=== PATIENT | female | born 1960 | race Caucasian/White ===

== ENCOUNTER 2022-08-03 08:06 | Day surgery (SDC) | payer MEDICARE ==
[2022-08-03] MEDS ORDERED: Sodium Chloride 0.9(Preservative Free) 10 ML IJ ONE (08:07)
[2022-08-03] MEDS ORDERED: LIDOCAINE HCL 1% 50 MG/5 ML VL PF IJ ONE (08:07)
[2022-08-03] MEDS ORDERED: Decadron 4 MG INJ IV ONE (08:07)
[2022-08-03] MEDS ORDERED: Depo-Medrol 40 MG/ML IM ONE (08:07)
[2022-08-03] MEDS ORDERED: Pepcid 20 MG VIAL IV ONE (08:38)
[2022-08-03] MEDS ORDERED: Reglan 10 MG/2 ML ONE (08:38)
[2022-08-03] MEDS ORDERED: DIPRIVAN 200 MG/20 ML IV ONE (09:05)
[2022-08-03] MEDS ORDERED: Lactated Ringers 1,000 ML IV ONE (11:54)
--- NOTE | 2022-08-03 18:22 | XRAY ---
Indication: Left L4-S1 transforaminal TYLER. Intraoperative fluoroscopy provided for 20 seconds. 3 digital spot image submitted for interpretation demonstrates posterior needle tips projecting over the expected left L4 and L5 nerve roots. Small amount of contrast injected for needle tip placement. Correlate with intraoperative findings/report.
--- NOTE | 2022-08-03 18:24 | XRAY ---
Indication: Left piriformis injection. Intraoperative fluoroscopy provided for 7 seconds. Single digital spot image submitted for interpretation demonstrates posterior needle tip projecting over the expected left piriformis muscle. Small amount of contrast injected for needle tip placement. Correlate with intraoperative findings/report.
--- NOTE | 2022-08-03 19:03 | XRAY ---
20 seconds of fluoroscopy was used in surgery for a left L4-S1 transforaminal TYLER.
--- NOTE | 2022-08-03 19:04 | XRAY ---
7 seconds of fluoroscopy was used in surgery for a left piriformis injection.
== END 2022-08-03 09:37 | disposition home or self-care (01) ==
LOC: SDC-PAIN 08:06
PROVIDERS: ATTEND Psychiatry & Neurology Pain Medicine
DX: M54.16 Radiculopathy, lumbar region (principal); M79.18 Myalgia, other site; Z79.899 Other long term (current) drug therapy
CPT/HCPCS: 20552; 64483; 64484; 72100; 72170; 77002; 77003; J1030; J1100; J2001; J2704; Q9966

== ENCOUNTER 2022-11-16 09:48 | Day surgery (SDC) | payer MEDICARE ==
[2022-11-16] MEDS ORDERED: Sodium Chloride 0.9(Preservative Free) 10 ML IJ ONE (09:49)
[2022-11-16] MEDS ORDERED: Depo-Medrol 40 MG/ML IM ONE (09:49)
[2022-11-16] MEDS ORDERED: DIPRIVAN 200 MG/20 ML IV ONE (12:35)
--- NOTE | 2022-11-16 14:50 | XRAY ---
Indication: Caudal TYLER. Intraoperative fluoroscopy provided for 14 seconds. 2 digital spot image submitted for interpretation demonstrates caudal needle tip projecting mid sacrum. Small amount of contrast injected for needle tip placement. Correlate with intraoperative findings/report.
--- NOTE | 2022-11-16 14:59 | XRAY ---
14 seconds of fluoroscopy was used in surgery for a caudal TYLER.
[2022-11-16] MEDS ORDERED: Lactated Ringers 1,000 ML IV ONE (15:00)
== END 2022-11-16 13:05 | disposition home or self-care (01) ==
LOC: SDC-PAIN 09:48
PROVIDERS: ATTEND Psychiatry & Neurology Pain Medicine
DX: M54.16 Radiculopathy, lumbar region (principal); Z79.899 Other long term (current) drug therapy
CPT/HCPCS: 62323; 72220; 77003; J1030; J2704; Q9966

== ENCOUNTER 2023-08-02 10:37 | Day surgery (SDC) | payer MEDICARE ==
[2023-08-02] MEDS ORDERED: BUPIVACAINE 0.5% VIAL IJ ONE (10:38)
[2023-08-02] MEDS ORDERED: XYLOCAINE-MPF 1% 5ML SDV IJ ONE (10:38)
[2023-08-02] MEDS ORDERED: Depo-Medrol 40 MG/ML IM ONE (10:38)
[2023-08-02] MEDS ORDERED: Lactated Ringers 1,000 ML IV ONE (12:03)
[2023-08-02] MEDS ORDERED: DIPRIVAN 200 MG/20 ML IV ONE (12:34)
[2023-08-02] MEDS ORDERED: Xylocaine-Mpf 2% 5 Ml Vial ONE (12:37)
--- NOTE | 2023-08-02 14:02 | XRAY ---
Indication: Left greater trochanter bursa injection. Intraoperative fluoroscopy was provided for 7 seconds. Single digital spot image obtained prone submitted for interpretation demonstrates needle tip projecting lateral to left greater trochanter. Small amount of contrast injected for needle tip placement. Correlate with intraoperative findings/report.
--- NOTE | 2023-08-03 14:12 | XRAY ---
7 seconds of fluoroscopy was used in surgery for a left greater trochanteric bursa injection.
== END 2023-08-02 13:00 | disposition home or self-care (01) ==
LOC: SDC-PAIN 10:37
PROVIDERS: ATTEND Psychiatry & Neurology Pain Medicine
DX: M16.12 Unilateral primary osteoarthritis, left hip (principal)
CPT/HCPCS: 20610; 73501; 76942; 77002; J1010; J2704; Q9966